=== PATIENT | female | born 1955 | race Caucasian/White ===

== ENCOUNTER → 2020-03-01 17:58 | Outpatient (CLI) | payer MEDICARE, SELFPAY ==
[2020-03-01 18:33] LABS: Basophils # 0.1 K/mm3 (0-0.2); Basophils % 0.8 % (0.1-2.0); Eosinophils # 0.5 K/mm3 (0.0-0.4); Eosinophils % 6.3 % (0.1-12.0); Hematocrit 44.7 % (37.0-47.0); Hemoglobin 14.3 g/dL (12.2-16.2); Lymphocytes # 2.4 K/mm3 (0.7-4.5); Lymphocytes % 33.1 % (10-50); Mean Corpuscular HGB Conc 32.1 g/dL (31.8-35.4); Mean Corpuscular Hemoglobin 31.1 pg (27.0-31.2); Mean Corpuscular Volume 96.9 fl (81-99); Mean Platelet Volume 9.1 fl (7.4-10.4); Monocytes # 0.4 K/mm3 (0.1-1.0); Monocytes % 5.1 % (1.7-9.3); Neutrophils % 54.8 % (37.0-80.0); Platelet Count 314 K/mm3 (142-424); Red Blood Count 4.61 M/mm3 (4.20-5.40); Red Cell Distribution Width 13.5 % (11.5-17.5); White Blood Count 7.2 K/mm3 (4.8-10.8)
[2020-03-01 19:00] LABS: Alanine Aminotransferase 39 U/L (12-78); Albumin Level 4.6 g/dl (3.5-5.0); Albumin/Globulin Ratio 1.5 (1.1-1.8); Alkaline Phosphatase 118 U/L (38-126); Anion Gap 12.1 mEq/L (5-15); Aspartate Amino Transferase 38 U/L (14-36); Bilirubin,Total 0.5 mg/dl (0.2-1.3); Blood Urea Nitrogen 12 mg/dl (7-17); Calcium 10.2 mg/dl (8.4-10.2); Carbon Dioxide 30 mmol/L (22.0-30.0); Chloride 103 mmol/L (98-107); Chol/HDL Ratio 2.7 (1-3.5); Cholesterol 194 mg/dl (140-200); Estimated Glomerular Filt Rate 84 ml/min (>60); GFR (African American) 102 ML/MIN (>60); Glucose 108 mg/dl (74-100); HDL Cholesterol 71 mg/dl (40-60); Potassium 4.1 mmoL/L (3.5-5.1); Sodium 141 mmol/L (136-145); Total Protein,Serum 7.6 g/dl (6.3-8.2); Triglycerides 159 mg/dl (30-150); VLDL Cholesterol 32 mg/dL (0-40)
[2020-03-01 19:12] LABS: Direct LDL Cholesterol 88.22 mg/dL (100-129)
[2020-03-01 19:18] LABS: T4 (Thyroxine) 10.7 ug/dl (5.53-11.0)
[2020-03-01 19:19] LABS: 25-OH Vitamin D, Total 65.7 ng/mL (30-100)
[2020-03-01 19:32] LABS: Thyroid Stimulating Hormone 0.58 uIU/mL (0.465-4.68)
== END ==
PROVIDERS: Visit Provider Family Medicine
DX: E55.9 Vitamin D deficiency, unspecified (principal); E03.9 Hypothyroidism, unspecified; E78.5 Hyperlipidemia, unspecified; I10 Essential (primary) hypertension
CPT/HCPCS: 80053; 80061; 82306; 84436; 84443; 85025

== ENCOUNTER → 2020-08-03 11:34 | Outpatient (CLI) | payer MEDICARE, SELFPAY ==
--- NOTE | 2020-08-03 11:40 | XR_ITS ---
PROCEDURE: XR CHEST PORTABLE CLINICAL HISTORY: COVID OUTPATIENT Cough COMPARISON: No exams were available for comparison FINDINGS: The cardiomediastinal silhouette and pulmonary vascularity are within normal limits. The lungs are clear without infiltrates, suspicious nodules, or pleural effusions. Mild upper thoracic curvature convex right IMPRESSION: No acute findings. Dictated by: Jona Zabala MD 08/03/2020 14:33 Jona Zabala MD in OV 08/03/2020 14:33
--- NOTE | 2020-08-03 11:48 | ECG_ITS ---
APPROVED REPORT Exam: Resting ECG HR:66 bpm ECG Measurements Heart Rate 66 AXES IL 154 P 28 QRSd 88 QRS 31 QT 392 T -14 QTc 410 Conclusion Sinus rhythm with occasional premature ventricular complexes and premature atrial complexes Otherwise normal ECG Electronically signed by : Parker Betancourt, 08/03/2020 19:07:19
== END ==
PROVIDERS: PCP Family Medicine; Visit Provider Family Medicine
DX: Z20.822 Contact with and (suspected) exposure to COVID-19 (principal); R06.00 Dyspnea, unspecified; I49.9 Cardiac arrhythmia, unspecified
CPT/HCPCS: 71045; 93005; U0003

== ENCOUNTER → 2021-03-12 14:51 | Outpatient (CLI) | payer MEDICARE, SELFPAY ==
[2021-03-12 15:06] LABS: Basophils # 0.1 K/mm3 (0-0.2); Basophils % 1.1 % (0.1-2.0); Eosinophils # 0.4 K/mm3 (0.0-0.4); Eosinophils % 8.1 % (0.1-12.0); Hematocrit 39.8 % (37.0-47.0); Hemoglobin 13.1 g/dL (12.2-16.2); Lymphocytes # 1.9 K/mm3 (0.7-4.5); Lymphocytes % 36.9 % (10-50); Mean Corpuscular HGB Conc 32.9 g/dL (31.8-35.4); Mean Corpuscular Hemoglobin 31.2 pg (27.0-31.2); Mean Platelet Volume 9.7 fl (7.4-10.4); Monocytes # 0.3 K/mm3 (0.1-1.0); Monocytes % 6.1 % (1.7-9.3); Neutrophils # 2.4 K/mm3 (1.8-7.8); Neutrophils % 47.7 % (37.0-80.0); Platelet Count 305 K/mm3 (142-424); Red Blood Count 4.19 M/mm3 (4.20-5.40); Red Cell Distribution Width 13.5 % (11.5-17.5); White Blood Count 5.1 K/mm3 (4.8-10.8)
[2021-03-12 15:38] LABS: Chloride 104 mmol/L (98-107); Potassium 3.9 mmoL/L (3.5-5.1); Sodium 142 mmol/L (136-145)
[2021-03-12 15:40] LABS: Alanine Aminotransferase 20 U/L (12-78); Aspartate Amino Transferase 34 U/L (14-36); Blood Urea Nitrogen 13 mg/dl (7-17); Estimated Glomerular Filt Rate 84 ml/min (>60); GFR (African American) 101 ML/MIN (>60)
[2021-03-12 15:41] LABS: Albumin Level 4.3 g/dl (3.5-5.0); Albumin/Globulin Ratio 1.7 (1.1-1.8); Alkaline Phosphatase 95 U/L (38-126); Anion Gap 8.9 mEq/L (5-15); Bilirubin,Total 0.3 mg/dl (0.2-1.3); Calcium 9.7 mg/dl (8.4-10.2); Carbon Dioxide 33 mmol/L (22.0-30.0); Chol/HDL Ratio 3.2 (1-3.5); Cholesterol 203 mg/dl (140-200); Globulin 2.5 g/dL (1.3-3.2); Glucose 94 mg/dl (74-100); HDL Cholesterol 64 mg/dl (40-60); Total Protein,Serum 6.8 g/dl (6.3-8.2); Triglycerides 144 mg/dl (30-150); VLDL Cholesterol 29 mg/dL (0-40)
[2021-03-12 15:53] LABS: Direct LDL Cholesterol 103.28 mg/dL (100-129)
[2021-03-12 16:12] LABS: Thyroid Stimulating Hormone 1.35 uIU/mL (0.465-4.68)
== END ==
PROVIDERS: Visit Provider Family Medicine
DX: Z00.00 Encounter for general adult medical examination without abnormal findings (principal); E78.5 Hyperlipidemia, unspecified
CPT/HCPCS: 80053; 80061; 84443; 85025

== ENCOUNTER → 2021-12-26 15:31 | Outpatient (CLI) | payer MEDICARE, SELFPAY ==
[2021-12-26 19:34] LABS: Erythrocyte Sedimentation Rate 19 mm/hr (0-30)
[2022-01-11 17:09] LABS: Antinuclear Antibodies (ANA) Negative; Rheumatoid Factor IGA < 7; Rheumatoid Factor IGM 9
== END ==
PROVIDERS: PCP Family Medicine; Visit Provider Family Medicine
DX: E78.5 Hyperlipidemia, unspecified (principal)
CPT/HCPCS: 85651; 86038; 86431

== ENCOUNTER → 2022-03-13 11:14 | Outpatient (CLI) | payer MEDICARE, SELFPAY ==
[2022-03-13 15:06] LABS: Alanine Aminotransferase 26 U/L (12-78); Albumin Level 4.6 g/dl (3.5-5.0); Albumin/Globulin Ratio 1.8 (1.1-1.8); Alkaline Phosphatase 114 U/L (38-126); Anion Gap 10.1 mEq/L (5-15); Aspartate Amino Transferase 31 U/L (14-36); Basophils # 0.1 K/mm3 (0-0.2); Bilirubin,Total 0.4 mg/dl (0.2-1.3); Blood Urea Nitrogen 20 mg/dl (7-17); Calcium 10.2 mg/dl (8.4-10.2); Carbon Dioxide 31 mmol/L (22.0-30.0); Chloride 105 mmol/L (98-107); Chol/HDL Ratio 3.1 (1-3.5); Cholesterol 202 mg/dl (140-200); Eosinophils # 0.4 K/mm3 (0.0-0.4); Eosinophils % 7.3 % (0.1-12.0); Estimated Glomerular Filt Rate 83 ml/min (>60); GFR (African American) 101 ML/MIN (>60); Globulin 2.5 g/dL (1.3-3.2); Glucose 95 mg/dl (74-100); HDL Cholesterol 66 mg/dl (40-60); Hematocrit 43.5 % (37.0-47.0); Hemoglobin 14.1 g/dL (12.2-16.2); Lymphocytes # 2.1 K/mm3 (0.7-4.5); Lymphocytes % 37.3 % (10-50); Mean Corpuscular HGB Conc 32.4 g/dL (31.8-35.4); Mean Corpuscular Volume 95.8 fl (81-99); Mean Platelet Volume 8.9 fl (7.4-10.4); Monocytes # 0.3 K/mm3 (0.1-1.0); Monocytes % 6.1 % (1.7-9.3); Neutrophils # 2.7 K/mm3 (1.8-7.8); Neutrophils % 48.3 % (37.0-80.0); Platelet Count 299 K/mm3 (142-424); Potassium 5.1 mmoL/L (3.5-5.1); Red Blood Count 4.54 M/mm3 (4.20-5.40); Red Cell Distribution Width 13.4 % (11.5-17.5); Sodium 141 mmol/L (136-145); Total Protein,Serum 7.1 g/dl (6.3-8.2); Triglycerides 145 mg/dl (30-150); VLDL Cholesterol 29 mg/dL (0-40); White Blood Count 5.6 K/mm3 (4.8-10.8)
[2022-03-13 15:18] LABS: Direct LDL Cholesterol 91.05 mg/dL (100-129)
[2022-03-13 15:40] LABS: Thyroid Stimulating Hormone 0.96 uIU/mL (0.465-4.68)
[2022-03-13 17:24] LABS: Iron 89 ug/dL (37-170)
[2022-03-13 17:33] LABS: Total Iron Binding Capacity 321 ug/dL (265-497)
[2022-03-13 18:00] LABS: Ferritin 29.6 ng/ml (11.1-264)
== END ==
PROVIDERS: PCP Family Medicine; Visit Provider Family Medicine
DX: E03.9 Hypothyroidism, unspecified (principal); I10 Essential (primary) hypertension; D64.9 Anemia, unspecified
CPT/HCPCS: 80053; 80061; 82728; 83540; 83550; 84443; 85025

== ENCOUNTER → 2023-03-23 22:34 | Outpatient (CLI) | payer MEDICARE, SELFPAY ==
[2023-03-23 19:31] LABS: Basophils % 0.4 % (0.1-2.0); Eosinophils # 0.4 K/mm3 (0.0-0.4); Eosinophils % 5.4 % (0.1-12.0); Hematocrit 40.7 % (37.0-47.0); Hemoglobin 13.8 g/dL (12.2-16.2); Lymphocytes # 2.7 K/mm3 (0.7-4.5); Lymphocytes % 36.5 % (10-50); Mean Corpuscular HGB Conc 33.9 g/dL (31.8-35.4); Mean Corpuscular Hemoglobin 32.7 pg (27.0-31.2); Mean Corpuscular Volume 96.4 fl (81-99); Mean Platelet Volume 9.1 fl (7.4-10.4); Monocytes # 0.4 K/mm3 (0.1-1.0); Monocytes % 5.4 % (1.7-9.3); Neutrophils # 3.9 K/mm3 (1.8-7.8); Neutrophils % 52.2 % (37.0-80.0); Platelet Count 260 K/mm3 (142-424); Red Blood Count 4.22 M/mm3 (4.20-5.40); Red Cell Distribution Width 13.6 % (11.5-17.5); White Blood Count 7.4 K/mm3 (4.8-10.8)
[2023-03-23 20:27] LABS: Chloride 106 mmol/L (98-107); Sodium 142 mmol/L (136-145)
[2023-03-23 20:28] LABS: Potassium 3.6 mmoL/L (3.5-5.1)
[2023-03-23 20:30] LABS: Alanine Aminotransferase 32 U/L (12-78); Alkaline Phosphatase 102 U/L (38-126); Anion Gap 9.6 mEq/L (5-15); Aspartate Amino Transferase 44 U/L (14-36); Bilirubin,Total 0.5 mg/dl (0.2-1.3); Blood Urea Nitrogen 15 mg/dl (7-17); Carbon Dioxide 30 mmol/L (22.0-30.0); Cholesterol 202 mg/dl (140-200); Estimated Glomerular Filt Rate 71 ml/min (>60); GFR (African American) 86 ML/MIN (>60); Iron 100 ug/dL (37-170); Triglycerides 104 mg/dl (30-150); VLDL Cholesterol 21 mg/dL (0-40)
[2023-03-23 20:31] LABS: Albumin Level 4.6 g/dl (3.5-5.0); Albumin/Globulin Ratio 1.7 (1.1-1.8); Calcium 9.3 mg/dl (8.4-10.2); Chol/HDL Ratio 2.2 (1-3.5); Globulin 2.7 g/dL (1.3-3.2); Glucose 90 mg/dl (74-100); HDL Cholesterol 90 mg/dl (40-60); Total Protein,Serum 7.3 g/dl (6.3-8.2)
[2023-03-23 20:43] LABS: Direct LDL Cholesterol 88.05 mg/dL (100-129)
[2023-03-23 20:46] LABS: Total Iron Binding Capacity 326 ug/dL (265-497)
[2023-03-23 21:02] LABS: Thyroid Stimulating Hormone 0.59 uIU/mL (0.465-4.68)
[2023-03-30 16:24] LABS: 1,25 Dihydroxy Vitamin D 32 pg/mL (.); 1,25-Dihydroxy, Vitamin D-2 <10 pg/mL (.); 1,25-Dihydroxy, Vitamin D-3 31 pg/mL (.)
== END ==
PROVIDERS: PCP Family Medicine; Visit Provider Family Medicine
DX: E03.9 Hypothyroidism, unspecified (principal); E55.9 Vitamin D deficiency, unspecified; I10 Essential (primary) hypertension; Z68.28 Body mass index [BMI] 28.0-28.9, adult; E78.5 Hyperlipidemia, unspecified; R74.01 Elevation of levels of liver transaminase levels
CPT/HCPCS: 80053; 80061; 82652; 83540; 83550; 84443; 85025

== ENCOUNTER 2024-03-24 09:28 | Outpatient (CLI) | payer MEDICARE, SELFPAY ==
[2024-03-24 18:05] LABS: Basophils # 0.1 K/mm3 (0-0.2); Basophils % 0.9 % (0.1-2.0); Eosinophils # 0.4 K/mm3 (0.0-0.4); Eosinophils % 6.2 % (0.1-12.0); Hematocrit 41.3 % (37.0-47.0); Hemoglobin 13.4 g/dL (12.2-16.2); Lymphocytes # 1.9 K/mm3 (0.7-4.5); Lymphocytes % 31.8 % (10-50); Mean Corpuscular HGB Conc 32.5 g/dL (31.8-35.4); Mean Corpuscular Hemoglobin 31.4 pg (27.0-31.2); Mean Corpuscular Volume 96.6 fl (81-99); Mean Platelet Volume 8.8 fl (7.4-10.4); Monocytes # 0.4 K/mm3 (0.1-1.0); Monocytes % 5.7 % (1.7-9.3); Neutrophils # 3.3 K/mm3 (1.8-7.8); Neutrophils % 55.4 % (37.0-80.0); Platelet Count 326 K/mm3 (142-424); Red Blood Count 4.27 M/mm3 (4.20-5.40); Red Cell Distribution Width 13.6 % (11.5-17.5)
[2024-03-24 18:25] LABS: Alanine Aminotransferase 24 U/L (12-78); Albumin Level 4.2 g/dl (3.5-5.0); Albumin/Globulin Ratio 1.7 (1.1-1.8); Alkaline Phosphatase 89 U/L (38-126); Anion Gap 8.3 mEq/L (5-15); Aspartate Amino Transferase 33 U/L (14-36); Bilirubin,Total 0.4 mg/dl (0.2-1.3); Blood Urea Nitrogen 15 mg/dl (7-17); Calcium 9.8 mg/dl (8.4-10.2); Carbon Dioxide 32 mmol/L (22.0-30.0); Chloride 107 mmol/L (98-107); Chol/HDL Ratio 3.1 (1-3.5); Cholesterol 184 mg/dl (140-200); Estimated Glomerular Filt Rate 83 ml/min (>60); GFR (African American) 100 ML/MIN (>60); Globulin 2.5 g/dL (1.3-3.2); Glucose 98 mg/dl (74-100); HDL Cholesterol 60 mg/dl (40-60); Potassium 4.3 mmoL/L (3.5-5.1); Sodium 143 mmol/L (136-145); Total Protein,Serum 6.7 g/dl (6.3-8.2); Triglycerides 180 mg/dl (30-150); VLDL Cholesterol 36 mg/dL (0-40)
[2024-03-24 18:35] LABS: Direct LDL Cholesterol 85.85 mg/dL (100-129)
[2024-03-24 18:54] LABS: Thyroid Stimulating Hormone 1.09 uIU/mL (0.465-4.68)
== END 2024-03-24 23:59 | disposition home or self-care (01) ==
LOC: LAB.DROPOF 03-25 14:33
PROVIDERS: PCP Family Medicine; Visit Provider Family Medicine
DX: E03.9 Hypothyroidism, unspecified (principal); I10 Essential (primary) hypertension
CPT/HCPCS: 80053; 80061; 84443; 85025

== ENCOUNTER 2025-03-29 09:00 | Outpatient (CLI) | payer MEDICARE, SELFPAY ==
[2025-03-29 15:46] LABS: Hematocrit 41.9 % (37.0-47.0); Hemoglobin 13.6 g/dL (12.2-16.2); Immature Granulocytes % 0.2 %; Mean Corpuscular HGB Conc 32.5 g/dL (31.8-35.4); Mean Corpuscular Hemoglobin 31.0 pg (27.0-31.2); Mean Corpuscular Volume 95.4 fl (81-99); Nucleated Red Blood Cells % 0 %; Platelet Count 253 K/mm3 (142-424); Red Blood Count 4.39 M/mm3 (4.20-5.40); Red Cell Distribution Width-SD 48.2 fL; White Blood Count 4.8 K/mm3 (4.8-10.8)
[2025-03-29 17:13] LABS: Alanine Aminotransferase 21 U/L (12-78); Albumin Level 4.4 g/dl (3.5-5.0); Albumin/Globulin Ratio 1.8 (1.1-1.8); Alkaline Phosphatase 77 U/L (38-126); Anion Gap 9.6 mEq/L (5-15); Aspartate Amino Transferase 28 U/L (14-36); Bilirubin,Total 0.6 mg/dl (0.2-1.3); Blood Urea Nitrogen 14 mg/dl (7-17); Calcium 9.7 mg/dl (8.4-10.2); Carbon Dioxide 28 mmol/L (22.0-30.0); Chloride 107 mmol/L (98-107); Cholesterol 176 mg/dl (140-200); Creatinine,Serum 0.80 mg/dl (0.52-1.04); Estimated Glomerular Filt Rate 71 ml/min (>60); GFR (African American) 86 ML/MIN (>60); Globulin 2.5 g/dL (1.3-3.2); Glucose 92 mg/dl (74-100); HDL Cholesterol 77 mg/dl (40-60); Potassium 3.6 mmoL/L (3.5-5.1); Sodium 141 mmol/L (136-145); Total Protein,Serum 6.9 g/dl (6.3-8.2); Triglycerides 129 mg/dl (30-150)
[2025-03-29 17:43] LABS: Thyroid Stimulating Hormone 0.58 uIU/mL (0.465-4.68)
[2025-03-29 18:05] LABS: Hepatitis C Ab Qual. W/ RFX NEGATIVE (Negative)
--- OUTSIDE RECORDS SUMMARY | 2025-03-29 20:45 | XMS_ITS | Encounter Summary ---
Author Organization [place] [address] Care Team Providers Care Gore Stitcher Name Role Phone Jarrett Tyson MD Primary Care Provider [phone] Encounter Details Date Type Department Care Team (Late st Contact Info) Description 01/17/2021 Lab Requisition [facility] [place] [address] Lisa Drummond MD [address] [place] [address] Encounter for screening for COVID-19 Social History Tobacco Use Types Packs/Day Years Used Date Smoking Tobacco: Never Smokeless Tobacco: Never Alcohol Use Standard Drinks/Week Comments No 0 (1 standard drink = 0.6 oz pur e alcohol) Comments No Sex and Gender Information Value Date Recorded Sex Assigned at Not on file Legal Sex Female 8:51 PM EDT Gender Identity Not on file Sexual Orientation Not on file documented as of this encounter Plan of Treatment Not on file documented as of this encounter Procedures Procedure Name Priority Date/Time Associated Diagnosis Comments CORONAVIRUS 2019 Routine 01/16/2021 7:55 PM EDT Encounter for screening for COVID-19 documented in this encounter Results * CORONAVIRUS 2019 (01/16/2021 7:55 PM EDT) CORONAVIRUS [id number] Not Detected Not Detected 01/17/2021 8:31 PM EDT [facility] Comment: Caution should be exercised when interpreting a result of 'Not Detected'. A result of 'Not Detected' does not rule out COVID-19 and cannot be used as sole basis for treatment or patient management decisions. If COVID-19 is still suspected following a 'Not Detected' result, re-testing should be considered. This test is a nucleic acid amplification test intended for the qualitative detection of nucleic acid from the SARS-CoV-2 in upper respiratory samples collected from individuals suspected of COVID-19. Test is performed on the Foodista platform under the FDA's Emergency Use Authorization (EUA). [employer] Provider Fact Sheet: https://www.fda.gov/media/068641/download [employer] Patient Fact Sheet: https://www.fda.gov/media/466734/download Performed at [facility] [address] [place] [address] CLIA [id number] Swab BOTH ANTERIOR NARES / Unknown 01/16/2021 7:55 PM EDT 01/17/2021 12:52 PM EDT us Lisa Drummond MD MICROBIOLOGY - GENERAL ORDERABL ES Final Result [facility] [address] [facility], [address] [place], [place] [id number] documented in this encounter Visit Diagnoses Diagnosis Encounter for screening for COVID-19 documented in this encounter Care Teams Gore Stitcher Relationship Specialty Start Date End Date Jarrett Tyson MD PCP - General Family Medicine 05/30/14 documented as of this encounter
--- OUTSIDE RECORDS SUMMARY | 2025-03-29 20:45 | XMS_ITS | Clinical Summary ---
Author Organization [facility] Address [address] [place] [address] Phone Care Team Providers Care Environmental Engineering Technician Name Role Phone Jarrett Tyson MD Primary Care Provider [phone] Allergies No known active allergies Medications lisinopril-hydro chlorothiazide (PRINZIDE;ZESTOR ETIC) 20-12.5 mg Oral Tablet Take 1 Tab by mouth daily. Active atorvastatin (LIPITOR) 20 mg Oral Tablet Take 20 mg by mouth daily. Active aspirin 81 mg Oral Tablet, Delayed Release (E.C.) Take 81 mg by mouth daily. Active levothyroxine (SYNTHROID) 88 mcg Oral Tablet Take 88 mcg by mouth daily. Active multivitamin (THERAGRAN) Oral Tablet Take by mouth daily. Active GLUCOSAMINE HCL/CHONDR MONROY A NA (OSTEO BI-FLEX ORAL) Take 1 Tab by mouth 2 times daily. Active CALCIUM CARB/VIT D3/MINERALS (CALCIUM 600 + MINERALS ORAL) Take by mouth. Active meloxicam (MOBIC) 15 mg Oral Tablet Take 1 Tablet by mouth daily. 30 Tablet 03/30/2023 Active naproxen (NAPROSYN) 500 mg Oral Tablet Take 1 Tablet by mouth 2 times daily. 60 Tablet 05/12/2023 Active Resolved Problems Problem Noted Date Diagnosed Date Resolved Date Tailor's bunion of left foot 02/25/2016 02/25/2016 Surgical History Surgery Date Site/Laterality Comments FOOT SURGERY right buion APPENDECTOMY ARM SURGERY right arm fx BREAST SURGERY right lump bengin TUBAL LIGATION TOE SURGERY 02/25/2016 Left LEFT FOOT EXCISION FIFTH METATARSAL HEAD ; Surgeon: Joaquin Baires DPM; Location: [facility] MAIN OR; Service: Orthopedics Medical History Medical History Date Comments Hypertension Heart murmur Hyperlipidemia Thyroid disease Arthritis Social History Tobacco Use Types Packs/Day Years Used Date Smoking Tobacco: Never Smokeless Tobacco: Never Tobacco Cessation:Counseling Given: Not Answered Alcohol Use Standard Drinks/Week Comments No 0 (1 standard drink = 0.6 oz pur e alcohol) Comments No Sex and Gender Information Value Date Recorded Sex Assigned at Not on file Legal Sex Female 8:51 PM EDT Gender Identity Not on file Sexual Orientation Not on file Last Filed Vital Signs Vital Sign Reading Time Taken Comments Blood Pressure 136/60 10/02/2017 8:16 PM EDT Pulse 80 10/02/2017 8:16 PM EDT Temperature 36.8 C (98.3 F) 10/02/2017 8:16 PM EDT Respiratory Rate 18 10/02/2017 8:16 PM EDT Oxygen Saturation 97% 10/02/2017 8:16 PM EDT Inhaled Oxygen Concentration - - Weight 72.1 kg (159 lb) 05/18/2023 9:42 AM EST Height 160 cm (5' 3 ) 05/18/2023 9:42 AM EST Body Mass Index 28.17 05/18/2023 9:42 AM EST Plan of Treatment Health Maintenance Due Date Last Done Comments Wellness Exam Medicare 1958 Hepatitis C Screening 1972 DTaP/TDaP/Td (1 - Tdap) 1973 Breast Cancer Screening 1994 Cologuard 1999 Colon Cancer Screening 1999 Colonoscopy 1999 FIT 1999 Sigmoidoscopy 1999 Virtual Colonography 1999 Zoster (1 of 2) 2004 Bone Density Screening 2019 Pneumococcal Vaccine 50+ (2 of 2 - PCV) 03/01/2021 03/01/2020 COVID-19 Vaccine (5 - 2024- season) 2024 11/04/2021, 01/10/2021, 04/24/2020, Additional history exists Influenza Vaccine (#1) 2024 3, 02/13/2022, 02/01/2021, Additional history exists Hepatitis B Vaccine Aged Out No longe r eligible based on patient's age to complete this topic Meningococcal B Vaccine Aged Out No l onger eligible based on patient's age to complete this topic Insurance [employer] MEDICARE PPO MR [employer] MEDICARE PPO MR [facility] Care Teams Environmental Engineering Technician Relationship Specialty Start Date End Date Jarrett Tyson MD PCP - General Family Medicine 05/30/14
--- OUTSIDE RECORDS SUMMARY | 2025-03-29 20:45 | XMS_ITS | Encounter Summary ---
Author Organization [place] [address] Care Team Providers Care Medical Record Coder Name Role Phone Jarrett Tyson MD Primary Care Provider [phone] Encounter Details Date Type Department Care Team (Late st Contact Info) Description 12/20/2020 Lab Requisition [facility] [place] [address] Juan Andrade MD [address] [place] [address] Encounter for screening for other viral diseases Social History Tobacco Use Types Packs/Day Years [...] Date/Time Associated Diagnosis Comments CORONAVIRUS 2019 Routine 12/20/2020 1:49 PM EDT Encounter for screening for other viral diseases documented in this encounter Results * CORONAVIRUS 2019 (12/20/2020 1:49 PM EDT) CORONAVIRUS [id number] Not Detected Not Detected 12/20/2020 10:04 PM EDT [facility] Comment: Caution should be exercised when interpreting [...] of COVID-19. Test is performed on the Feedgen platform under the FDA's Emergency Use Authorization (EUA). [employer] Provider Fact Sheet: https://www.fda.gov/media/350470/download [employer] Patient Fact Sheet: https://www.fda.gov/media/530676/download Performed at [facility] [address] [place] [address] CLIA [id number] Swab BOTH ANTERIOR NARES / Unknown 12/20/2020 1:49 PM EDT 12/20/2020 3:39 PM EDT us Juan Andrade MD MICROBIOLOGY - GENERAL ORDERABLE S Final Result [facility] [address] [facility], [place] [address] documented in this encounter Visit Diagnoses Diagnosis Encounter for screening for other viral diseases documented in this encounter Care Teams Medical Record Coder Relationship Specialty Start Date End Date Jarrett Tyson MD PCP - General Family Medicine 05/30/14 documented as of this encounter
--- OUTSIDE RECORDS SUMMARY | 2025-03-29 20:45 | XMS_ITS | Encounter Summary ---
Author Organization [place] [address] Care Team Providers Care Event Planning Manager Name Role Phone Jarrett Tyson MD Primary Care Provider [phone] Encounter Details Date Type Department Care Team (Late st Contact Info) Description 02/02/2021 Lab Requisition [facility] [place] [address] Lisa Drummond MD [address] [place] [address] Encounter for screening for COVID-19 Social History [...] Date/Time Associated Diagnosis Comments CORONAVIRUS 2019 Routine 02/01/2021 2:30 PM EDT Encounter for screening for COVID-19 documented in this encounter Results * CORONAVIRUS 2019 (02/01/2021 2:30 PM EDT) CORONAVIRUS [id number] Not Detected Not Detected 02/02/2021 8:44 PM EDT [facility] Comment: Caution should be exercised when interpreting [...] of COVID-19. Test is performed on the Simalaya platform under the FDA's Emergency Use Authorization (EUA). [employer] Provider Fact Sheet: https://www.fda.gov/media/149853/download [employer] Patient Fact Sheet: https://www.fda.gov/media/533610/download Performed at [facility] [address] [place] [address] CLIA [id number] Swab BOTH ANTERIOR NARES / Unknown 02/01/2021 2:30 PM EDT 02/02/2021 1:19 PM EDT us Lisa Drummond MD MICROBIOLOGY - GENERAL ORDERABL ES Final Result [facility] [address] [facility], [address] [place], [place] [id number] documented in this encounter Visit Diagnoses Diagnosis Encounter for screening for COVID-19 documented in this encounter Care Teams Event Planning Manager Relationship Specialty Start Date End Date Jarrett Tyson MD PCP - General Family Medicine 05/30/14 documented as of this encounter
--- OUTSIDE RECORDS SUMMARY | 2025-03-29 20:45 | XMS_ITS | Encounter Summary ---
Author Organization [place] [address] Care Team Providers Care Addressing Machine Operator Name Role Phone Jarrett Tyson MD Primary Care Provider [phone] Encounter Details Date Type Department Care Team (Late st Contact Info) Description 02/13/2021 Lab Requisition [facility] [place] [address] Lisa Drummond MD [address] [place] [address] Encounter for screening for COVID-19 Social History [...] Date/Time Associated Diagnosis Comments CORONAVIRUS 2019 Routine 02/13/2021 8:22 AM EDT Encounter for screening for COVID-19 documented in this encounter Results * CORONAVIRUS 2019 (02/13/2021 8:22 AM EDT) CORONAVIRUS [id number] Not Detected Not Detected 02/13/2021 2:14 PM EDT [facility] Comment: Caution should be exercised when interpreting [...] of COVID-19. Test is performed on the Dada platform under the FDA's Emergency Use Authorization (EUA). [employer] Provider Fact Sheet: https://www.fda.gov/media/055194/download [employer] Patient Fact Sheet: https://www.fda.gov/media/337280/download Performed at [facility] [address] [place] [address] CLIA [id number] Swab BOTH ANTERIOR NARES / Unknown 02/13/2021 8:22 AM EDT 02/13/2021 8:22 AM EDT us Lisa Drummond MD MICROBIOLOGY - GENERAL ORDERABL ES Final Result [facility] [address] [facility], [address] [place], [place] [id number] documented in this encounter Visit Diagnoses Diagnosis Encounter for screening for COVID-19 documented in this encounter Care Teams Addressing Machine Operator Relationship Specialty Start Date End Date Jarrett Tyson MD PCP - General Family Medicine 05/30/14 documented as of this encounter
--- OUTSIDE RECORDS SUMMARY | 2025-03-29 20:45 | XMS_ITS | Encounter Summary ---
Author Organization [place] [address] Care Team Providers Care Ingredient Specialist Name Role Phone Jarrett Tyson MD Primary Care Provider [phone] Encounter Details Date Type Department Care Team (Late st Contact Info) Description 08/26/2021 Lab Requisition [facility] [address] [place] [id number] Encounter for screening for COVID-19 Social History [...] Date/Time Associated Diagnosis Comments CORONAVIRUS 2019 Routine 08/26/2021 5:35 AM EDT Encounter for screening for COVID-19 documented in this encounter Results * CORONAVIRUS 2019 (08/26/2021 5:35 AM EDT) CORONAVIRUS [id number] Not Detected Not Detected 08/26/2021 9:04 PM EDT [facility] [employer] [facility] Comment: Caution should be exercised when interpreting [...] of COVID-19. Test is performed on the BuildingLayer platform under the FDA's Emergency Use Authorization (EUA). [employer] Provider Fact Sheet: https://www.fda.gov/media/931995/download [employer] Patient Fact Sheet: https://www.fda.gov/media/923702/download Performed at [facility] [address] [place] [address] [facility] [id number] Swab BOTH ANTERIOR NARES / Unknown 08/26/2021 5:35 AM EDT 08/26/2021 1:22 PM EDT us Lisa Drummond MD MICROBIOLOGY - GENERAL ORDERABL ES Final Result [facility] [address], [address] [place], [place] [id number] documented in this encounter Visit Diagnoses Diagnosis Encounter for screening for COVID-19 documented in this encounter Care Teams Ingredient Specialist Relationship Specialty Start Date End Date Jarrett Tyson MD PCP - General Family Medicine 05/30/14 documented as of this encounter
[2025-03-31 09:29] LABS: Hepatitis B Surface Antigen Negative (Negative)
== END 2025-03-29 23:59 | disposition home or self-care (01) ==
LOC: LAB.DROPOF 20:39
PROVIDERS: PCP Family Medicine; Visit Provider Family Medicine
DX: Z00.00 Encounter for general adult medical examination without abnormal findings (principal); I10 Essential (primary) hypertension; E78.5 Hyperlipidemia, unspecified; E55.9 Vitamin D deficiency, unspecified; E03.9 Hypothyroidism, unspecified; Z11.59 Encounter for screening for other viral diseases
CPT/HCPCS: 80053; 80061; 84443; 85025; 86803; 87340; 87389